=== PATIENT | female | born 1995 | race Hispanic/Latino ===

== ENCOUNTER 2019-11-20 08:46 | Outpatient (CLI) | payer OTHER, SELFPAY ==
--- NOTE | ~2019-11-20 | US_ITS ---
EXAMINATION: US OB <=14 wk fetus w TV DATE: 11/20/2019 10:07 INDICATION: Routine care TECHNIQUE: Real-time pelvic ultrasound utilizing both a transvaginal and transabdominal probe was pe rformed. The interpreting radiologist was not present for the study. COMPARISON: None. FINDINGS: The uterus measures 10.2 x 5.6 x 4.8 cm. There is an intrauterine gestational sac. A yolk sac and fe philomena pole are identified. The crown rump length measures 1.4 cm, which correlates with an estimated ge stational age of 7 weeks and 5 days. heart motion is identified measuring 149 beats per minute (bpm) by M-mode Doppler. The right ovary is not visualized. The left ovary measures 3.5 x 4.2 x 3.2 cm. 2.8 cm anechoic likely corpus luteum cyst in the left ovary. Normal vascular flow identified in the left ovary on color Dop pler. There is no free fluid in the pelvis. IMPRESSION: 1. Single living fetus with heart rate of 149 bpm. 2. Gestational age by ultrasound of 7 weeks 5 day(s) +/- 5 day(s) with ultrasound estimated date of delivery (TISH) of 07/03/2020. Reviewed, dictated and finalized at location B. IMPRESSION: 1. Single living fetus with heart rate of 149 bpm. 2. Gestational age by ultrasound of 7 weeks 5 day(s) +/- 5 day(s) with ultraso und estimated date of delivery (TISH) of 07/03/2020.
== END 2019-11-20 08:47 | disposition home or self-care (01) ==
PROVIDERS: Visit Provider Obstetrics & Gynecology
DX: Z3A.01 Less than 8 weeks gestation of pregnancy (principal); Z34.81 Encounter for supervision of other normal pregnancy, first trimester
CPT/HCPCS: 76801; 76817

== ENCOUNTER 2020-01-04 09:27 | Outpatient (CLI) | payer OTHER, SELFPAY ==
--- NOTE | ~2020-01-04 | US_ITS ---
EXAMINATION: US OB >= 14 weeks Fetus DATE: 01/04/2020 10:19 INDICATION: Encounter for supervision of normal , unspecified TECHNIQUE: Real-time ultrasound of the pelvis was performed. COMPARISON: None. FINDINGS: The placenta is anterior. heart rate is 145 beats per minute (bpm). cardiac activity and movement are noted. The amniotic fluid index is subjectively normal. The crown rump taras th measures 8.4 cm , which correlates with an estimated gestational age of 14 weeks and 2 day(s) (+/- ) 9 day(s). IMPRESSION: 1. Single living intrauterine . 2. Estimated gestational age of 14 weeks and 2 day(s) (+/-) 9 day(s) with an estimated delivery date of 07/02/2020. Reviewed, dictated and finalized at location A. IMPRESSION: 1. Single living intrauterine . 2. Estimated gestational age of 14 weeks and 2 day(s) (+/-) 9 day(s) with an es timated delivery date of 07/02/2020.
== END 2020-01-04 09:28 | disposition home or self-care (01) ==
PROVIDERS: Visit Provider Obstetrics & Gynecology
DX: Z34.92 Encounter for supervision of normal pregnancy, unspecified, second trimester (principal); Z3A.14 14 weeks gestation of pregnancy
CPT/HCPCS: 76805

== ENCOUNTER 2020-01-30 10:44 | Outpatient (CLI) | payer OTHER, SELFPAY ==
--- NOTE | ~2020-01-30 | US_ITS ---
US OB >= 14 weeks Fetus DATE: 01/30/2020 11:21 INDICATION: Normal second trimester TECHNIQUE: Real-time imaging and Doppler analysis COMPARISON: 01/04/2020 obstetrical ultrasound FINDINGS: Live vallejo intrauterine gestation, fetus in breech presentation, longitudinal lie. Feta l heart rate of 139 bpm. The placenta is anterior fundal. Biparietal diameter 4.03 cm; 18 weeks 2 days Head circumference 15.02 cm; 18 weeks 1 day Abdominal circumference 13.56 cm; 19 weeks Femur length 2.66 cm; 18 weeks 1 day Composite age by Burns formula is 18 weeks 3 days +/- 1 week 2 days; TISH: 06/29/2020, compared to by LMP Estimated weight by Hadlock formula is 244.4 +/- 30 6.7 g HC/AC measures 1.11, within normal range of 1.08-1.27 Femur length/head circumference: 17.74, within normal range of 15.93, 118.13 IMPRESSION: Breech presentation Normal interval growth since 01/04/2020 Reviewed, dictated and finalized at Location A. Reviewed, dictated and finalized at location A. [employer]
== END 2020-01-30 10:45 | disposition home or self-care (01) ==
PROVIDERS: Visit Provider Obstetrics & Gynecology
DX: Z34.92 Encounter for supervision of normal pregnancy, unspecified, second trimester (principal); Z3A.18 18 weeks gestation of pregnancy
CPT/HCPCS: 76805

== ENCOUNTER 2020-03-12 17:04 | Outpatient (CLI) | payer OTHER, SELFPAY ==
--- NOTE | ~2020-03-12 | US_ITS ---
EXAMINATION: US OB /maternal detail DATE: 03/12/2020 17:50 INDICATION: Morbid obesity. survey. TECHNIQUE: Multiple obstetric sonographic images performed. FINDINGS: Comparison to multiple prior studies sequentially, with oldest reviewed study dated 2019. There is a single living fetus in vertex presentation. The placenta is anterior without placenta pre via. Amniotic fluid volume is normal.. Examination limited due to patient body habitus. cardiac activity and movement is noted with a heart rate of 142 beats per minute. The following anatomy was identified as normal: 4 chamber heart 3 vessel cord cord insertion kidneys urinary bladder stomach spine diaphragm ventricles cisterna magna cerebellum The following biometric data were obtained: BPD: 58mm corresponds to gestational age 23 weeks 5 days. Head circumference: 216 mm corresponds to gestational age 23 weeks 5 days. Abdominal circumference: 200 mm corresponds to gestational age 24 weeks 5 days. Femur length: 42 mm corresponds to gestational age 23 weeks 4 days. Head circumference to abdominal circumference ratio: 1.08 (normal range for expected gestational age is 1.04-1.21). Estimated weight: 661 grams +/- 99 grams using Hadlock method. IMPRESSION: 1: Single living intrauterine with an estimated gestational age of 23weeks 6days by initial ultrasound measurements, with an EDC of 07/03/2020 in vertex presentation. 2. Normal survey. Reviewed, dictated and finalized at location A. ERY ASSISTANT IMPRESSION: 1: Single living intrauterine with an estimated gestational age of 23 weeks 6days by initial ultrasound measurements, with an EDC of 07/03/2020 in dru geovanni presentation. 2. Normal survey.
== END 2020-03-12 17:05 | disposition home or self-care (01) ==
PROVIDERS: Visit Provider Physician Assistant
DX: Z34.92 Encounter for supervision of normal pregnancy, unspecified, second trimester (principal); Z3A.23 23 weeks gestation of pregnancy
CPT/HCPCS: 76805

== ENCOUNTER 2020-03-26 17:44 | Observation (INO) | payer OTHER, SELFPAY ==
[2020-03-26 18:08] VITALS: BP 128/67; PULSE 96
[2020-03-26 18:30] VITALS: BMI 50.3
[2020-03-26] MEDS: DEXTROSE 5%/LACTATED RINGERS 1,000 ML 999 ML IV CONT (18:32)
[2020-03-26] MEDS: LOPERAMIDE HCL 2 MG CAPSULE 4 MG PO (18:48)
--- NOTE | 2020-03-26 19:40 | OBADM ---
This patient, Gabbi Sullivan, admitted to the OB room OB Post 117 for observation. Patient/family oriented to hospital policies and general routines including ID bracelet, bed and alarms, visiting hours, pain management, procedures, bathroom and other care routines, personal items, smoking policy, room service/diet, and visiting hours. Patient/Family are encouraged to report perceived risks to care and to ask questions if they do not understand what they are told or what they should do.
--- NOTE | 2020-04-01 19:30 | PM.OBTRLD ---
OB - Triage/Final Diagnosis Visit Information Date of evaluation: 03/26/20 Reason for evaluation: other (dehydration and diarrhea) Evaluation Baseline heart rate: 140 Variability: Average (6-10) monitor accelerations: Present monitor decelerations: None Cervical dilation (cm): 0 Cervical effacement (%): 0 station: -4 Final Diagnosis (1) Dehydration during : Code(s): O26.899 - Other specified related conditions, unspecified trimester; E86.0 - Dehydration Status: Acute (2) Diarrhea during : Code(s): O26.899 - Other specified related conditions, unspecified trimester; R19.7 - Diarrhea, unspecified Status: Acute
== END 2020-03-26 20:26 | disposition home or self-care (01) ==
PROVIDERS: Admitting Provider Obstetrics & Gynecology; Visit Provider Obstetrics & Gynecology
DX: O26.892 Other specified pregnancy related conditions, second trimester (principal); E86.0 Dehydration; R19.7 Diarrhea, unspecified; Z3A.25 25 weeks gestation of pregnancy
CPT/HCPCS: 96360; 96361; A9270; G0378; G0379; J7121

== ENCOUNTER 2020-04-09 13:11 | Outpatient (CLI) | payer OTHER, SELFPAY ==
--- NOTE | ~2020-04-09 | US_ITS ---
EXAMINATION: US OB follow up DATE: 04/09/2020 13:47 INDICATION: Encounter for supervision of normal during early third trimester of TECHNIQUE: Real-time ultrasound of the pelvis was performed. The interpreting radiologist was not pre sent for the study. COMPARISON: None. FINDINGS: There is a single living fetus in vertex presentation. The placenta is anterior. heart rate is 165 beats per minute (bpm). The amniotic fluid volume is subjectively normal. The following biometric data were obtained: BPD: 7.5 cm -> 29 weeks 6 days Head circumference: 26.8 cm -> 29 weeks 1 days Abdominal circumference: 25.7 cm -> 29 weeks 6 days Femur length: 5.2 cm -> 27 weeks 5 days These measurements are concordant. Head circumference to abdominal circumference ratio: 1.04 (normal range 0.99-1.21). Estimated weight: 1331 g (+/-) 200 g. or 2 lbs. 15 oz. (+/-) 7 oz. IMPRESSION: 1. Single living fetus in vertex presentation with heart rate of 165 bpm. 2. Estimated weight is 83rd percentile by Hadlock criteria when 07/03/2020 is used as the estima moira date of delivery (TISH). Please correlate with clinical information or earlier ultrasounds for mos t accurate TISH. Reviewed, dictated and finalized at location A. LANCE INTERPRETER/TRANSLATOR IMPRESSION: 1. Single living fetus in vertex presentation with heart rate of 165 bpm. 2. Estimated weight is 83rd percentile by Hadlock criteria when 07/03/2020 is used as the estimated date of delivery (TISH). Please correlate with clinica l information or earlier ultrasounds for most accurate TISH.
== END 2020-04-09 13:12 | disposition home or self-care (01) ==
PROVIDERS: PCP Obstetrics & Gynecology; Visit Provider Obstetrics & Gynecology
DX: Z34.90 Encounter for supervision of normal pregnancy, unspecified, unspecified trimester (principal); Z3A.00 Weeks of gestation of pregnancy not specified
CPT/HCPCS: 76816

== ENCOUNTER 2020-05-20 10:40 | Observation (INO) | payer OTHER, SELFPAY ==
--- NOTE | 2020-05-20 10:40 | OBADM ---
This patient, Gabbi Sullivan, admitted to the OB room OB Post 113 for observation. Patient/family oriented to hospital policies and general routines including ID bracelet, bed and alarms, visiting hours, pain management, procedures, bathroom and other care routines, personal items, smoking policy, room service/diet, and visiting hours. Patient/Family are encouraged to report perceived risks to care and to ask questions if they do not understand what they are told or what they should do.
[2020-05-20 11:00] VITALS: BP 125/69; PULSE 110; BMI 50.7
--- NOTE | 2020-05-23 20:54 | PM.OBTRLD ---
OB - Triage/Final Diagnosis Visit Information Comments/Additional reasons for admission: I have assessed the risk for this patient, Gabbi Sullivan, and determined that she would benefit from observation care. Final Diagnosis (1) False labor: Code(s): O47.9 - False labor, unspecified Status: Acute
== END 2020-05-20 12:20 | disposition home or self-care (01) ==
PROVIDERS: Admitting Provider Obstetrics & Gynecology; Visit Provider Obstetrics & Gynecology
DX: O47.03 False labor before 37 completed weeks of gestation, third trimester (principal); Z3A.33 33 weeks gestation of pregnancy
CPT/HCPCS: 84112; G0378; G0379

== ENCOUNTER 2020-05-28 20:23 | Emergency (ER) | payer OTHER, SELFPAY ==
[2020-05-28 20:28] VITALS: BP 138/71; PULSE 104; RESP 18; TEMP 36.3; O2SAT 100
--- NOTE | 2020-05-28 20:40 | ED.GENADULT ---
HPI - General Adult General Chief complaint: Unspecified Stated complaint: difficulty breathing through mouth Time Seen by Provider: 05/28/20 20:40 History of Present Illness HPI narrative: 24 yo female presents to the ED for SOB. While eating earlier she suddenly felt short of breath. She reports that she is able to breath in through her nose and out through her mouth. If she tries to breath in through her mouth then she cannot blow it out. She says that she felt like this when she had an allergic reaction to a medication in the past. She has not taken any new medications. No chest pain, nausea, vomiting. She is 32 weeks . Related Data Home Medications Medication Instructions Recorded Confirmed PNV,calcium [id number] acid tablet 05/28/20 [ Vitamin Plus Low Iron] aspirin 05/28/20 fluconazole 05/28/20 folic acid 05/28/20 Allergies Allergy/AdvReac Type Severity Reaction Status Date / Time No Known Allergies Allergy Verified 05/28/20 20:32 Review of Systems Review of Systems: All systems reviewed & are unremarkable except as noted in HPI and below Constitutional: Constitutional: Denies fever(s) and Denies weakness Eyes: Eyes: Denies change in vision ENT: Denies dizziness Cardiovascular: Cardiovascular: Reports chest pain and Denies rapid heart rate Respiratory: Respiratory: Reports dyspnea Gastrointestinal: Gastrointestinal: Reports heartburn, Reports nausea and Denies vomiting Neurologic: Denies dizziness, Denies numbness and Denies weakness Allergic/Immunologic: Allergic/Immunologic: Denies lip swelling, Denies throat swelling and Denies tongue swelling PMFSH Social History Social History Gender identity (if verbalized by the patient): Female Sexual Orientation (if Verbalized by the Patient): Straight or Heterosexual Exam Const: General: healthy appearing, no acute distress and alert Nutritional Appearance: obese morbidly obese Orientation/consciousness: patient oriented x3 HENMT: Head: normal to inspection Face and sinus: normal facial exam Teeth and gingiva: dentition normal Throat: posterior oropharynx normal and uvula midline Neck: Neck: normal visual inspection and no lymphadenopathy Chest: Chest palpation & inspection: no tenderness Resp: Effort & Inspection: normal respiratory effort Auscultation: clear to auscultation bilaterally, no rales, no rhonchi and no wheezes Other: No stridor Cardio: Jugular venous distension: no JVD Rate: regular rate Rhythm: regular rhythm Heart sounds: no murmurs GI: Inspection: non-distended GI Palp: Yes Soft to palpation and No Tenderness to palpation present (GI) Skin: General skin exam: normal color Neuro: General: patient oriented x3 and moves all extremities Speech: normal speech Extrem: General: no edema Psych: Appearance: well kempt Affect: normal affect Course Vital Signs Vital signs: Vital Signs Temperature 36.3 C L 05/28/20 20:28 Pulse Rate 104 H 05/28/20 20:28 Respiratory Rate 18 05/28/20 20:28 Blood Pressure 138/71 05/28/20 20:28 Pulse Oximetry 100 05/28/20 20:28 Temperature 36.4 C L 05/28/20 22:23 Pulse Rate 86 05/28/20 22:23 Respiratory Rate 18 05/28/20 22:23 Blood Pressure 138/84 05/28/20 22:23 Pulse Oximetry 100 05/28/20 22:23 Medical Decision Making MDM Narrative Medical decision making narrative: Oxygen saturation 100%. No physiologic mechanism for her symptoms. Differential Diagnosis Differential Diagnosis: Anxiety, allergy, food bolus, other Medical Records Medical records reviewed: Yes I reviewed the external patient's medical records. Vital Signs Vital Signs: Vital Signs Temperature 36.3 C L 05/28/20 20:28 Pulse Rate 104 H 05/28/20 20:28 Respiratory Rate 18 05/28/20 20:28 Blood Pressure 138/71 05/28/20 20:28 Pulse Oximetry 100 05/28/20 20:28 Temperature 36.4 C L
[2020-05-28 22:23] VITALS: BP 138/84; PULSE 86; RESP 18; TEMP 36.4; O2SAT 100
== END 2020-05-28 22:24 | disposition home or self-care (01) ==
PROVIDERS: Emergency Provider Emergency Medicine
DX: O26.893 Other specified pregnancy related conditions, third trimester (principal); R06.02 Shortness of breath; Z3A.32 32 weeks gestation of pregnancy
CPT/HCPCS: 99281

== ENCOUNTER 2020-06-02 13:12 | Outpatient (CLI) | payer OTHER, SELFPAY ==
--- NOTE | ~2020-06-02 | US_ITS ---
EXAMINATION: US OB follow up DATE: 06/02/2020 13:38 INDICATION: Assess growth during third trimester . TECHNIQUE: Real-time ultrasound of the pelvis was performed. The interpreting radiologist was not pre sent for the study. COMPARISON: None. FINDINGS: There is a single living fetus in vertex presentation. The placenta is anterior. heart rate is 157 beats per minute (bpm). The amniotic fluid volume is subjectively normal. The following biometric data were obtained: BPD: 9.2 cm -> 37 weeks 3 days Head circumference: 31.9 cm -> 36 weeks 0 days Abdominal circumference: 33.7 cm -> 37 weeks 4 days Femur length: 6.6 cm -> 34 weeks 0 days These measurements are concordant. Head circumference to abdominal circumference ratio: 0.95 (normal range 0.92-1.07). Estimated weight: 2967 g (+/-) 445 g. or 6 lbs. 9 oz. (+/-) 1 lb. 0 oz. IMPRESSION: 1. Single living fetus in vertex presentation with heart rate of 157 bpm. 2. Estimated weight is 73rd percentile by Hadlock criteria when 07/02/2020 is used as the estima moira date of delivery (TISH). Please correlate with clinical information or earlier ultrasounds for mos t accurate TISH. Reviewed, dictated and finalized at location B. IMPRESSION: 1. Single living fetus in vertex presentation with heart rate of 157 bpm. 2. Estimated weight is 73rd percentile by Hadlock criteria when 07/02/2020 is used as the estimated date of delivery (TISH). Please correlate with clinica l information or earlier ultrasounds for most accurate TISH.
== END 2020-06-02 13:13 | disposition home or self-care (01) ==
PROVIDERS: Visit Provider Obstetrics & Gynecology
DX: O35.8XX9 Maternal care for other (suspected) fetal abnormality and damage, other fetus (principal); Z3A.00 Weeks of gestation of pregnancy not specified
CPT/HCPCS: 76816

== ENCOUNTER 2020-06-08 15:05 | Observation (INO) | payer OTHER, SELFPAY ==
--- NOTE | 2020-06-08 15:05 | OBADM ---
This patient, Gabbi Sullivan, admitted to the OB room Labor/Delivery/Recovery 119 for observation. Patient/family oriented to hospital policies and general routines including ID bracelet, bed and alarms, visiting hours, pain management, procedures, bathroom and other care routines, personal items, smoking policy, room service/diet, and visiting hours. Patient/Family are encouraged to report perceived risks to care and to ask questions if they do not understand what they are told or what they should do.
[2020-06-08 16:15] VITALS: TEMP 36.8
[2020-06-08 17:24] VITALS: BMI 50.7
== END 2020-06-08 17:13 | disposition home or self-care (01) ==
PROVIDERS: Admitting Provider Obstetrics & Gynecology; Visit Provider Obstetrics & Gynecology
DX: O47.03 False labor before 37 completed weeks of gestation, third trimester (principal); Z3A.36 36 weeks gestation of pregnancy
CPT/HCPCS: G0378; G0379

== ENCOUNTER 2020-06-18 15:01 | Observation (INO) | payer OTHER, SELFPAY | END 2020-06-18 17:45 | disposition home or self-care (01) | PROVIDERS: Admitting Provider Obstetrics & Gynecology; Visit Provider Obstetrics & Gynecology | DX: O47.1 False labor at or after 37 completed weeks of gestation (principal); Z3A.37 37 weeks gestation of pregnancy | CPT/HCPCS: 84112; G0378; G0379 ==

== ENCOUNTER 2020-06-22 02:42 | Inpatient (IN) | payer OTHER, SELFPAY ==
[2020-06-22] VITALS (61 sets, daily range): BP systolic 91–129; BP diastolic 44–78; PULSE 54–132; RESP 11–23; TEMP 36.1–36.8; O2SAT 99–100; BMI 52.1
--- NOTE | 2020-06-22 03:41 | LDADM ---
This patient, Gabbi Sullivan, was admitted to Labor/Delivery/Recovery 120 on 06/22/20 at 02:42. Plans for labor, pain management and were discussed with patient. Patient/family oriented to hospital policies and general routines including ID bracelet, bed and alarms, visiting hours, pain management, procedures, bathroom and other care routines, personal items, smoking policy, room service/diet and guest tray routines, security routines, and visiting hours. Patient/Family are encouraged to report perceived risks to care and to ask questions if they do not understand what they are told or what they should do. See OBIX for further documentation.
[2020-06-22 03:59] LABS: Basophils Percent Auto 0.2 % (0.2-1.2); Eosinophils Absolute Auto 0.1 K/mm3 (0-0.3); Eosinophils Percent Auto 0.8 % (0-4.4); Hematocrit 27.8 % (37.0-47.0); Hemoglobin 8.1 g/dL (12.0-15.0); Immature Granulocyte Absolute 0.06 K/mm3 (0.00-0.031); Immature Granulocyte Percent A 0.5 % (0-0.5); Lymphocytes Absolute Auto 2.14 K/mm3 (0.9-3.2); Lymphocytes Percent Auto 19.1 % (18.3-44.2); Mean Corpuscular HGB Conc 29.1 g/dl (32-36); Mean Corpuscular Hemoglobin 20.3 pg (26-34); Mean Corpuscular Volume 69.7 fl (80-100); Mean Platelet Volume 10.9 fl (7.4-10.4); Monocytes Absolute Auto 0.7 K/mm3 (0.1-0.6); Monocytes Percent Auto 5.8 % (2.6-8.5); Neutrophils Absolute Auto 8.2 K/mm3 (1.3-6.7); Neutrophils Percent Auto 73.6 % (45.5-73.1); Nucleated Red Blood Cells Perc 0.2 % (0.0-0.2); Platelet Count Result 296 k/mm3 (150-375); Red Blood Count 3.99 M/mm3 (4.2-5.4); Red Cell Distribution Width 18.1 % (11.5-14.5); White Blood Count 11.2 K/mm3 (4.5-10.0)
[2020-06-22] MEDS: LACTATED RINGERS 1,000 ML 125 ML IV CONT ×2 (05:00→06:26)
--- NOTE | 2020-06-22 05:32 | WPDHPUPDATE1 ---
History and Physical Update Update Date/Time: 06/22/20 05:32 History and Physical has been reviewed, including an updated exam of the patient. There are NO changes in the patient's condition. Risks, benefits, and alternatives have been discussed and questions answered. Patient agrees to proceed with procedure. 24 yo HF at 38w3d with a history of previous section, MTHFR, pre-eclampsia and GDM, GBS carrier, abnormal progesterone, obesity, MDD candidiasis, UTI klebsiella aerogenes, anemia, presents to Labor and delivery at [facility] with complaints of spontaneous rupture membranes at 2:00 a.m. on 06/22/2020 ROM test positive contractions irregular cervix still 3 cm dilated desires repeat section 3d. The patient is scheduled for a repeat on 06/27/2020 at [facility] I explained her condition procedure and risks involved including but not limited to bleeding infection injury to bladder bowel baby pelvic vessels DVT pneumonia wound infections endometrioid is UTI and the risk of anesthesia she understands all this and accepts and agrees to proceed.
--- NOTE | 2020-06-22 05:33 | WPDOBADMIT ---
Obstetrics - Admit Note Admission Note: record reviewed. No pertinent additions to the history and/or any subsequent changes in the physical findings that are not consistent with the expected course of the were found. Additions to the history and/or subsequent changes in the physical findings follow. None 24 yo HF at 38w3d with a history of previous section, MTHFR, pre-eclampsia and GDM, GBS carrier, abnormal progesterone, obesity, MDD candidiasis, UTI klebsiella aerogenes, anemia, presents to Labor and delivery at [facility] with complaints of spontaneous rupture membranes at 2:00 a.m. on 06/22/2020 ROM test positive contractions irregular cervix still 3 cm dilated desires repeat section 3d. The patient is scheduled for a repeat on 06/27/2020 at [facility] I explained her condition procedure and risks involved including but not limited to bleeding infection injury to bladder bowel baby pelvic vessels DVT pneumonia wound infections endometrioid is UTI and the risk of anesthesia she understands all this and accepts and agrees to proceed. .
--- NOTE | 2020-06-22 05:55 | PM.IMHP ---
H&P: HPI History of Present Illness Date/Time: 06/22/20 05:26 24 yo HF at 38w3d with a history of previous section, MTHFR, pre-eclampsia and GDM, GBS carrier, abnormal progesterone, obesity, MDD candidiasis, UTI klebsiella aerogenes, anemia, presents to Labor and delivery at [facility] with complaints of spontaneous rupture membranes at 2:00 a.m. on 06/22/2020 ROM test positive contractions irregular cervix still 3 cm dilated desires repeat section 3d. The patient is scheduled for a repeat on 06/27/2020 at [facility] I explained her condition procedure and risks involved including but not limited to bleeding infection injury to bladder bowel baby pelvic vessels DVT pneumonia wound infections endometrioid is UTI and the risk of anesthesia she understands all this and accepts and agrees to proceed. Chief Complaint: Term spontaneous rupture membranes spontaneous labor previous delivery desires repeat Review of Systems Review of Systems: All systems reviewed & are unremarkable except as noted in HPI and below Constitutional: Constitutional: Reports no additional constitutional complaints Eyes: Eyes: Reports no additional eye complaints ENT: Reports system reviewed and no additional complaints, except as documented Cardiovascular: Cardiovascular: Reports no additional cardiovascular complaints Respiratory: Respiratory: Reports no additional respiratory complaints Gastrointestinal: Gastrointestinal: Reports no additional gastrointestinal complaints Genitourinary: Genitourinary: Reports no additional female genitourinary complaints Musculoskeletal: Musculoskeletal: Reports no additional musculoskeletal complaints Integumentary/Breasts: Skin/Breast: Reports system reviewed and no additional complaints, except as docu Neurologic: Reports system reviewed and no additional complaints, except as documented Psychiatric: Psychiatric: Reports no additional psychiatric complaints Endocrine: Endocrine: Reports no additional endocrine complaints Hematologic/Lymphatic: Hematologic/Lymphatic: Reports no additional hematologic/lymphatic complaints Allergic/Immunologic: Allergic/Immunologic: Reports no additional allergic/immunologic complaints [facility] Past Medical History Medical History (Updated 06/22/20 @ 05:52 by Ceferino Gonzalez MD) Abnormal glucose tolerance test (GTT) Anemia affecting Bacterial vaginosis GBS (group B Streptococcus carrier), +RV culture, currently History of depression History of UTI Homozygous MTHFR mutation [id number] LGA (large for gestational age) fetus MDD (major depressive disorder) Migraine headache Obesity Sinusitis Sleep disorder Subchorionic hematoma Term Vaginal delivery 08-15-2015, 40 wks Male, 7lbs 2oz, normal spontaneous vertex Vaginal delivery born in [place] natural childbirth complicated by preeclampsia and gestational diabetes and depression Surgical History Surgical History (Updated 06/22/20 @ 05:45 by Ceferino Gonzalez MD) Delivery by section Previous section complicating 05-07-2017, 38.1 wk female Laurence Bryant , 8lbs 4oz, Primary at [facility] for CPD under spinal anesthesia Family History Family History Grandparent Diabetes mellitus Grandparent Hypertension Social History Social History (Updated 06/22/20 @ 05:48 by Ceferino Gonzalez MD) Smoking status: Never smoker Alcohol intake: never Substance use: never Substance use type: does not use Living arrangements: with family Occupation/Education: unemployed Gender identity (if verbalized by the patient): Female Sexual Orientation (if Verbalized by the Patient): Straight or Heterosexual Spiritual care concerns: No Agree to blood products: Yes Meds Home Medicatio
--- NOTE | 2020-06-22 07:03 | WPDANESEPP ---
Anes - Eval Pre Procedure Procedure: Operation Date: 06/27/20 10:30 Proposed Procedures p Repeat Low Transverse Section - Ceferino Gonzalez MD Operation Date: 06/27/20 12:00 Proposed Procedures p Repeat Section - Ceferino Gonzalez MD Date/Time: 06/22/20 07:03 Preop Diagnosis: Previous C section Pre Op Diagnosis: leaking Patient Data Age: 24 Gender: F Height: 5 ft 7 in Weight: 151 kg Last Vital Signs Pulse 132 H 06/22/20 03:31 BP 121/61 06/22/20 03:31 Allergies Allergy/AdvReac Type Severity Reaction Status Date / Time [id number] Antimigraine Allergy Anaphylaxis Verified 06/02/20 14:49 Agents Home Medications Medication Instructions Recorded Confirmed Type Vitamin Plus Low Iron 1 tablet PO DAILY 05/28/20 06/18/20 History aspirin 81 mg PO DAILY 05/28/20 06/18/20 History folic acid 1 mg PO DAILY 05/28/20 06/18/20 History escitalopram oxalate 10 mg PO DAILY 06/02/20 06/18/20 History ferrous sulfate [Iron (ferrous 325 mg PO DAILY 06/02/20 06/18/20 History sulfate)] progesterone micronized 200 mg PO BID 06/02/20 06/18/20 History Laboratory Tests 06/22/20 06/22/20 06/22/20 03:43 03:43 03:43 WBC 11.2 K/mm3 H K/mm3 (4.5-10.0) RBC 3.99 M/mm3 L M/mm3 (4.2-5.4) Hgb 8.1 g/dL L g/dL (12.0-15.0) Hct 27.8 % L % (37.0-47.0) MCV 69.7 fl L fl (80-100) MCH 20.3 pg L pg (26-34) MCHC 29.1 g/dl L g/dl (32-36) RDW 18.1 % H % (11.5-14.5) Plt Count 296 k/mm3 k/mm3 (150-375) MPV 10.9 fl H fl (7.4-10.4) Immature Gran % (Auto) 0.5 % % (0-0.5) Neut % (Auto) 73.6 % H % (45.5-73.1) Lymph % (Auto) 19.1 % % (18.3-44.2) [place] % (Auto) 5.8 % % (2.6-8.5) Eos % (Auto) 0.8 % % (0-4.4) Baso % (Auto) 0.2 % % (0.2-1.2) Lymph # (Auto) 2.14 K/mm3 K/mm3 (0.9-3.2) [place] # (Auto) 0.7 K/mm3 H K/mm3 (0.1-0.6) Eos # (Auto) 0.1 K/mm3 K/mm3 (0-0.3) Baso # (Auto) 0.0 K/mm3 K/mm3 (0.0-0.1) Abs Immat Gran (auto) 0.06 K/mm3 H K/mm3 (0.00-0.031) Absolute Neuts (auto) 8.2 K/mm3 H K/mm3 (1.3-6.7) Absolute Nucleated RBC 0.0 K/mm3 K/mm3 (0.0-0.012) Nucleated RBC % 0.2 % % (0.0-0.2) RPR Pending Blood Type O Positive Antibody Screen Negative Patient hx anesthesia problems: none Family hx anesthesia problems: none [facility] Past Medical History Medical History Abnormal glucose tolerance test (GTT) Anemia affecting Bacterial vaginosis GBS (group B Streptococcus carrier), +RV culture, currently History of depression History of UTI Homozygous MTHFR mutation C677T LGA (large for gestational age) fetus MDD (major depressive disorder) Migraine headache Obesity Sinusitis Sleep disorder Subchorionic hematoma Term Vaginal delivery 08-15-2015, 40 wks Male, 7lbs 2oz, normal spontaneous vertex Vaginal delivery born in [place] natural childbirth complicated by preeclampsia and gestational diabetes and depression Surgical History Surgical History Delivery by section Previous section complicating 05-07-2017, 38.1 wk female Laurence Bryant , 8lbs 4oz, Primary at [facility] for CPD under spinal anesthesia Family History Family History Grandparent Diabetes mellitus Grandparent Hypertension Social History Social History Smoking status: Never smoker Alcohol intake: never Substance use: never Substance use type: does not use Living arrangements: with family Occupation/Education:
--- NOTE | 2020-06-22 07:48 | PM.PROC ---
Procedure Note - Detailed Date of procedure: 06/22/20 Pre-op diagnosis: leaking Term Spontaneous onset of labor Spontaneous labor Previous desires repeat section MTHFR GBS LGA Obesity Abnormal glucose tolerance test MD Lemus Post-op diagnosis: same (Delivered viable male infant) Procedure performed: Repeat low-transverse section with delivery of viable male infant and placenta Description of procedure: Patient had informed consent was then taken to the operating room where she was placed in the sitting position for spinal anesthesia which was placed without difficulty. Patient was then placed in the supine position with a Mcnulty catheter inserted and then the abdomen was then prepped and draped with a tracks abdominal support and the usual sterile dressings. A time-out was then performed and testing for adequate anesthesia was confirmed. An elliptical incision was then made around the old scar and the old scar was then excised using electrocautery. Fascia was entered transversely with electrocautery and then undermined superior and inferior hemostasis with electrocautery. Peritoneum was then grasped and entered with electrocautery digitally dissected the vesicouterine peritoneal reflection was then incised transversely. A transverse incision was made to the uterus clear fluid was obtained the uterine incision was extended bilaterally digitally with the occiput transverse position noted. The vertex was then delivered via the abdominal incision without difficulty and the baby was placed on maternal abdomen where the cord was then clamped and cut and stimulation of the baby revealed spontaneous respirations and cry and the baby was handed to the nursery nurse in attendance with Apgars given 9 And 9 time of delivery 8:13 a.m.. Baby weighed 8 lb 5 oz taken to the nursery in stable condition. Baby had normal transition cord gases obtained cord blood obtained placenta was then delivered intact with a three-vessel cord and the uterus was externalized blood clots removed from the intrauterine cavity as well as membranes and 10 units of Pitocin was given into the myometrium as well as intravenously. The uterine incision was then repaired in 2 layers with 0 Vicryl in a running and locking fashion the 2nd being an imbricating stitch. Hemostasis excellent blood clots removed from the cul-de-sac both lateral margins sponge needle instrument counts were correct. The peritoneum and fascia was then closed with 0 Vicryl in a running fashion. The fascia was then closed with 2. Quill the S RS system bilaterally. The Hiral's fascia was reapproximated 3 0 plain in a running fashion. The skin was closed with absorbable brigida INSORB staple device with excellent approximation Dermaflex was placed to the skin. Mepilex dressing was placed over the incision. Patient was taken to the recovery room in stable condition. Counts correct complications none specimens pathology placenta cord blood gases cord blood VTE prevention SCD antibiotic prophylaxis 3 g Ancef Mcnulty catheter 300 cc urine IV fluids 2000 Mom and baby in stable condition Implants: None Anesthesia: spinal Surgeon: Ceferino Gonzalez MD Computer Information Systems Professor: Amparo surgical corsetier x2 Estimated blood loss (mL): 405 IV fluids (mL): 2,000 Urine output (mL): 300 Drains: No Packing: No Pathology: yes (Placenta, cord gases, cord blood) Complications: None Condition: stable Disposition: floor Findings: Viable male infant named Carlos scores 9 and 9 weight 8 lb 5 oz length 21 in Born at 8:13 a.m. normal exam taken to the nursery in stable condition Placenta intact three-vessel cord sent to pathology Uterus tubes ovaries normal Hemostasis excellent Absorbable skin brigida Bottle feeding No circumcision desired Electrical Engineering Draftsperson SI HF depression prevention Lexapro control and ovarii
--- NOTE | 2020-06-22 07:49 | PM.OBPRVD ---
OB - Delivery Note Procedure Delivery date: 06/22/20 Procedure: Procedures Operation Date: 06/22/20 07:30 Repeat low-transverse section with delivery of viable male infant and placenta Operation Date: 06/27/20 10:30 <No data on this case meets the specified criteria> Operation Date: 06/27/20 12:00 <No data on this case meets the specified criteria> events: Previous Intrapartal events: None Induction method: none Delivery monitor: external FHT and external uterine Route of delivery: (Repeat low-transverse) Episiotomy description: None Laceration Description: None Specimen: Yes Quantitative Blood Loss (ml): 405 Anesthesia type: Spinal Disposition: floor [place] Baby Date of : 06/22/20 Time of : 08:13 Weeks of gestation at delivery: 38 Infant gender: Male (Carlos) Weight (pounds): 8 Weight (ounces): 5 presentation: vertex position: Left Occiput Transverse Placenta delivery description: Manual Removal and Normal Configuration cord vessel description: 3 Vessels score one minute: 8 score five minutes: 9 Narrative: See detailed op note
[2020-06-22] MEDS: OXYTOCIN 10 UNITS/ML VIAL (08:15)
--- NOTE | 2020-06-22 08:53 | WPDANESEFPP ---
Anes - Eval Final PreProcedure Day of Procedure 06/22/20 08:53 Patient weight: super morbidly obese Heart: regular rate and rhythm Lungs: clear to auscultation and normal air movement Airway: Mallampati scale class II Neurological: alert and oriented Last oral intake: >/= 8 hours ASA classification: III Emergent: no Anesthetic plan: proceed Anesthesia type and monitoring: regional spinal Informed Consent: The patient's anesthetic plan and its attendant risks and benefits were discussed with the patient/family/POA. Questions were solicited and answers provided to the satisfaction of the patient/family/POA.
--- NOTE | 2020-06-22 08:56 | PM.OBDSVD ---
DS: Admitting Diagnosis Admitting Diagnosis Admitting Diagnosis: Pre-op diagnosis: leaking Term Spontaneous onset of labor Spontaneous labor Previous desires repeat section MTHFR GBS LGA Obesity Abnormal glucose tolerance test MD Lemus DS: Discharge Diagnosis Discharge Diagnosis (1) Term delivered: Code(s): O80 - Encounter for full-term uncomplicated delivery Status: Acute (2) Status post repeat low transverse section: Code(s): Z98.891 - History of uterine scar from previous surgery Status: Acute (3) Spontaneous onset of labor: Status: Acute (4) Spontaneous rupture of membranes: Status: Acute (5) LGA (large for gestational age) fetus: Status: Acute (6) GBS (group B Streptococcus carrier), +RV culture, currently : Code(s): O99.820 - Streptococcus B carrier state complicating Status: Acute (7) Obesity: Code(s): E66.9 - Obesity, unspecified Status: Acute (8) Homozygous MTHFR mutation C677T: Code(s): Z15.89 - Genetic susceptibility to other disease Status: Acute OB - DS: Summary Hospital Course Time spent discussing smoking cessation with patient: 3 to 10 minutes OB Procedures : Ultrasound OB Procedures Intrapartum: (Repeat) low cervical, transverse OB Procedures: : None Peripartum Data Delivery Method: Section (Repeat low-transverse) Laceration Description: None Episiotomy description: None Procedures: Procedures Operation Date: 06/22/20 07:30 Repeat low-transverse section with delivery of viable male infant and placenta Operation Date: 06/27/20 10:30 <No data on this case meets the specified criteria> Operation Date: 06/27/20 12:00 <No data on this case meets the specified criteria> complications: none 1: Gender: Male (Carlos) Disposition of : home (No circumcision desired) Status at Discharge Functional status at discharge: independent ambulation Overall status at discharge: patient is back to baseline Time Spent with Patient Time attestation: Total time spent providing and/or coordinating discharge services: Time spent: Less than 30 minutes Exam Const: General: cooperative, healthy appearing, comfortable, no acute distress, well developed, alert, awake and Physically active HENMT: Head: normal to inspection Eyes: General: appearance normal, both eyes and all related structures Neck: Neck: normal visual inspection Chest: Chest palpation & inspection: normal inspection of the chest Resp: Effort & Inspection: normal respiratory effort Cardio: Rate: regular rate Rhythm: regular rhythm GI: Inspection: normal to inspection and incision (Dressing dry and intact) GI Palp: Yes Soft to palpation and Yes Other GI palpation findings present (Uterus nontender) Percussion: Yes normal to percussion Auscultation: normal bowel sounds : External Female Exam: normal external appearance Back/Spine/Pelvis: Back: no CVA tenderness Skin: General skin exam: normal color Neuro: General: patient oriented x3, gait normal, tone normal, moves all extremities, Normal light touch and pain sensation, no meningeal signs and no focal motor deficits Extrem: General: normal to inspection, full ROM and no calf tenderness Psych: Appearance: grossly normal Mental Status: mental status grossly normal Speech and movement: Normal speech and movement present Affect: normal affect Attitude: cooperative Thought content: Yes Normal thought content present Insight: Good insight present (Psych) Judgement: Good judgement present (Psych) DS: Data Data Completed and Pending Labs on day of discharge: Labs from last 24 hours 06/22/20 06/22/20 06/22/20 03:43 03:43 03:43 WBC 11.2 H RBC 3.99 L Hgb 8.1 L Hct 27.8 L MCV 69.7 L MCH 20.3 L MCHC 29.1 L RDW 1
[2020-06-22] MEDS: ONDANSETRON INJ 4 MG/2 ML VIAL IV PUSH (09:39)
[2020-06-22] MEDS: OXYTOCIN 30 UNITS/NS 500 ML 30 UNITS/500 ML BAG 125 UNITS IV CONT (09:39)
[2020-06-22] MEDS: KETOROLAC 30 MG/ML VIAL (*BKC) IV PUSH ×3 (11:30→23:35)
--- NOTE | 2020-06-22 12:15 | PC.NURSE ---
Patient transferred to post room #284 via stretcher. Support person present. Oriented to unit, room, information board, rooming in, admission packet and security measures. Patient verbalizes understanding.
[2020-06-22] MEDS: DEXTROSE 5%/0.45% SOD CHL 1,000 ML 125 ML IV CONT (14:13)
[2020-06-22] MEDS: KCL 20 MEQ/D5/0.45% SOD CHL 1,000 ML 125 ML IV CONT (22:21)
[2020-06-22] MEDS: HYDROcodone/acetaminophen (*CRX) 5-325 MG TABLET 1 TAB PO (22:29)
[2020-06-23 04:00] VITALS: BP 118/60; PULSE 87; RESP 16; TEMP 36.5; O2SAT 100
[2020-06-23] MEDS: IBUPROFEN 600 MG TABLET PO ×3 (05:30→19:57)
[2020-06-23 05:53] LABS: Basophils Percent Auto 0.2 % (0.2-1.2); Eosinophils Absolute Auto 0.1 K/mm3 (0-0.3); Eosinophils Percent Auto 0.8 % (0-4.4); Hematocrit 22.1 % (37.0-47.0); Immature Granulocyte Absolute 0.05 K/mm3 (0.00-0.031); Immature Granulocyte Percent A 0.5 % (0-0.5); Lymphocytes Absolute Auto 1.79 K/mm3 (0.9-3.2); Lymphocytes Percent Auto 18.6 % (18.3-44.2); Mean Corpuscular Hemoglobin 20.3 pg (26-34); Mean Corpuscular Volume 69.9 fl (80-100); Mean Platelet Volume 11.1 fl (7.4-10.4); Monocytes Absolute Auto 0.6 K/mm3 (0.1-0.6); Monocytes Percent Auto 6.3 % (2.6-8.5); Neutrophils Absolute Auto 7.1 K/mm3 (1.3-6.7); Neutrophils Percent Auto 73.6 % (45.5-73.1); Platelet Count Result 219 k/mm3 (150-375); Red Blood Count 3.16 M/mm3 (4.2-5.4); Red Cell Distribution Width 17.6 % (11.5-14.5); White Blood Count 9.6 K/mm3 (4.5-10.0)
[2020-06-23 06:17] LABS: Hemoglobin 6.4 g/dL (12.0-15.0)
[2020-06-23 06:18] LABS: Hypochromasia 1+ (NORMAL); Platelet Estimate Adequate (Adequate); Stomatocytes 1+ (NORMAL)
[2020-06-23 06:19] LABS: Target Cells 1+ (NORMAL)
[2020-06-23 07:18] LABS: Rapid Plasma Reagin Non-Reactive (NonReactive)
[2020-06-23 07:30] VITALS: BP 121/45; PULSE 78; RESP 18; TEMP 37.2; O2SAT 100
[2020-06-23] MEDS: SIMETHICONE 80 MG TAB.CHEW PO ×2 (08:45→14:05)
[2020-06-23] MEDS: HYDROcodone/acetaminophen (*CRX) 10-325 MG TABLET 1 TAB PO ×2 (08:46→17:20)
[2020-06-23] MEDS: MULTIVIT/MIN/PREN/FOL AC/IRON TABLET 1 TAB PO (08:46)
[2020-06-23] MEDS: POLYSACCHARIDE IRON COMPLEX 150 MG CAPSULE PO ×2 (08:46→17:19)
[2020-06-23] MEDS: DOCUSATE SODIUM 100 MG CAPSULE PO ×2 (08:46→17:20)
[2020-06-23] MEDS: ASPIRIN 81 MG ENTERIC TABLET PO (08:47)
[2020-06-23] MEDS: ESCITALOPRAM OXALATE 10 MG TABLET PO (08:47)
[2020-06-23] MEDS: FOLIC ACID 1 MG TABLET PO (08:47)
[2020-06-23 09:00] VITALS: PULSE 78; RESP 18; O2SAT 100
--- NOTE | 2020-06-23 11:28 | WPDANLDNPN2 ---
Anes-Prog Note L&D-Neuraxial Date/Time: 06/23/20 11:28 Neuraxial medications: intrathecal PF morphine Opiod-related complaints: none Patient feedback: Patient satisfied with post-operative pain management.
--- NOTE | 2020-06-23 11:28 | WPDANLDPN2 ---
Anes-Prog Note L&D Date/Time: 06/23/20 11:28 Comfortable throughout: section Neuraxial method: spinal Epidural/Spinal procedure site: clean & non-tender Neuro status: Neuro function grossly intact. Cardiovascular status: normal Respiratory status: normal Airway patency: baseline Mental status: baseline Post-Op hydration status: normal Vital Signs: Last Vital Signs Temp 37.2 C 06/23/20 07:30 Pulse 78 06/23/20 09:00 Resp 18 06/23/20 09:00 BP 121/45 L 06/23/20 07:30 Pulse Ox 100 06/23/20 09:00 Pain score (VAS): 0 I/O: Intake & Output 06/22/20 06/23/20 06/23/20 23:59 07:59 15:59 Intake Total 2000 1060 Output Total 925 1450 Balance 1075 -390 Post-procedural complaints: none Patient feedback: Patient satisfied with anesthetic care.
[2020-06-23] MEDS: HYDROcodone/acetaminophen (*CRX) 5-325 MG TABLET 1 TAB PO (14:05)
[2020-06-23 19:50] VITALS: BP 108/54; PULSE 95; RESP 16; TEMP 36.1; O2SAT 100
[2020-06-24] MEDS: HYDROcodone/acetaminophen (*CRX) 5-325 MG TABLET 1 TAB PO ×2 (00:17→04:31)
[2020-06-24] MEDS: IBUPROFEN 600 MG TABLET PO ×2 (04:31→10:06)
--- NOTE | 2020-06-24 06:44 | P.PNOB_ITS ---
OB - PN: Subj Subjective Date/time seen: 06/23/20 06:44 Patient comments: no complaints, pain well controlled, tolerating diet and flatus present [place] baby status: doing well and bottle feeding well [place] feeding status: exclusively bottle feeding OB - PN: Obj Data Labs CBC & Chem 7: 06/23/20 05:29 Labs: Laboratory Results - last 24 hr 06/22/20 03:43 RPR Non-reactive OB - PN A/P Assessment and Plan (1) Term delivered: Code(s): O80 - Encounter for full-term uncomplicated delivery Status: Acute (2) Status post repeat low transverse section: Code(s): Z98.891 - History of uterine scar from previous surgery Status: Acute (3) Anemia affecting : Code(s): O99.019 - Anemia complicating , unspecified trimester Status: Acute Plan day: 1 Plan: routine care, discharge home and follow up 6 weeks Time Spent With Patient Time: Total time spent is greater than 50% in coordination of care (as documented) at patient's floor/unit and/or counseling patient: Time with patient: less than 15 minutes Review of Systems Review of Systems: All systems reviewed & are unremarkable except as noted in HPI and below Exam Const: General: cooperative, healthy appearing, comfortable, well developed, alert, awake and Physically active Nutritional Appearance: average body habitus and obese Limitations: no limitations HENMT: Head: normal to inspection Eyes: General: appearance normal, both eyes and all related structures Neck: Neck: normal visual inspection and full ROM Chest: Chest palpation & inspection: normal inspection of the chest Breast/axilla inspection: normal inspection of the breasts Resp: Effort & Inspection: normal respiratory effort Auscultation: clear to auscultation bilaterally Cardio: Rate: regular rate Rhythm: regular rhythm GI: Inspection: incision (DDI) GI Palp: Yes Soft to palpation Percussion: Yes normal to percussion Auscultation: normal bowel sounds : External Female Exam: normal external appearance Urinary Catheter: Urinary Catheter: patent and draining and urine clear Back/Spine/Pelvis: Back: no CVA tenderness Skin: General skin exam: normal color Neuro: General: patient oriented x3, gait normal, tone normal, moves all extremities, Normal light touch and pain sensation, no meningeal signs and no f ocal motor deficits Extrem: General: normal to inspection, full ROM and no calf tenderness Psych: Appearance: grossly normal Mental Status: mental status grossly nor mal Speech and movement: Normal speech and movement present Affect: normal affect Attitude: cooperative Thought process: Normal thought process present Thought content: Yes Normal thought content present Insight: Good insight present (Psych) Judgement: Good judgement present (Psych)
[2020-06-24 07:00] VITALS: BP 107/58; PULSE 95; RESP 16; RESP 18; TEMP 36.3; O2SAT 100; O2SAT 97
[2020-06-24] MEDS: SIMETHICONE 80 MG TAB.CHEW PO (07:15)
[2020-06-24] MEDS: POLYSACCHARIDE IRON COMPLEX 150 MG CAPSULE PO (07:15)
[2020-06-24] MEDS: MULTIVIT/MIN/PREN/FOL AC/IRON TABLET 1 TAB PO (07:15)
[2020-06-24] MEDS: DOCUSATE SODIUM 100 MG CAPSULE PO (07:16)
[2020-06-24] MEDS: HYDROcodone/acetaminophen (*CRX) 10-325 MG TABLET 1 TAB PO (10:06)
[2020-06-24] MEDS: ASPIRIN 81 MG ENTERIC TABLET PO (10:06)
[2020-06-24] MEDS: ESCITALOPRAM OXALATE 10 MG TABLET PO (10:06)
[2020-06-24] MEDS: FOLIC ACID 1 MG TABLET PO (10:07)
[2020-06-25 08:34] VITALS: BP 115/63; PULSE 90; RESP 20; TEMP 36.9; O2SAT 100
== END 2020-06-24 13:25 | disposition home or self-care (01) | DRG 540 ==
LOC: ANHLDR 09:02 → ANHOB2 11:21
PROVIDERS: Admitting Provider Obstetrics & Gynecology; Visit Provider Obstetrics & Gynecology
PROC: 10D00Z1 Extraction of Products of Conception, Low, Open Approach (ICD-10-PCS; CPT 59514; principal; 2020-06-22 07:30)
DX: O34.211 Maternal care for low transverse scar from previous cesarean delivery (principal); Z37.0 Single live birth; Z3A.38 38 weeks gestation of pregnancy; O99.284 Endocrine, nutritional and metabolic diseases complicating childbirth; E72.12 Methylenetetrahydrofolate reductase deficiency; O24.429 Gestational diabetes mellitus in childbirth, unspecified control; O99.214 Obesity complicating childbirth; E66.01 Morbid (severe) obesity due to excess calories; O99.02 Anemia complicating childbirth; D64.9 Anemia, unspecified; O99.344 Other mental disorders complicating childbirth; F32.9 Major depressive disorder, single episode, unspecified; O36.63X0 Maternal care for excessive fetal growth, third trimester, not applicable or unspecified
CPT/HCPCS: 36415; 85025; 86592; 86850; 86900; 86901; 88307; A9270; J0131; J1100; J1885; J2274; J2405; J2590; J3480; J7120

== ENCOUNTER 2022-01-27 21:41 | Emergency (ER) | payer OTHER, SELFPAY ==
[2022-01-27 22:20] VITALS: BP 141/59; PULSE 94; RESP 14; TEMP 37.1; O2SAT 98
--- NOTE | 2022-01-28 00:18 | ED.GENADULT ---
HPI - General Adult General Chief complaint: Headache Stated complaint: headache Time Seen by Provider: 01/27/22 23:56 History of Present Illness HPI narrative: 26-year-old female with history of daily migraines and type 2 diabetes presenting the emergency department for evaluation of headache. Patient states while she does have daily headaches that about 9 PM she developed a headache that was more intense than her typical's. Patient's atypical headache is usually more posterior and that her headache today is her entire head. Patient does have some cough and body aches as well. Patient denies any falls or injuries. Patient reports prior history of migraines Related Data Home Medications Medication Instructions Recorded Confirmed aspirin 81 mg tablet,delayed 81 mg PO DAILY 05/28/20 06/18/20 release folic acid 1 mg tablet 1 mg PO DAILY 05/28/20 06/18/20 vitamin with calcium 1 tablet PO DAILY 05/28/20 06/18/20 no.72-iron 27 mg-folic acid 1 mg tablet ( Vitamins Plus Low Iron) escitalopram oxalate 10 mg tablet 10 mg PO DAILY 06/02/20 06/18/20 ferrous sulfate 325 mg (65 mg 325 mg PO DAILY 06/02/20 06/18/20 iron) tablet (Iron (ferrous sulfate)) Allergies Allergy/AdvReac Type Severity Reaction Status Date / Time [id number] Antimigraine Allergy Anaphylaxis Verified 01/28/22 00:46 Agents Review of Systems Review of Systems: CONSTITUTIONAL: Denies fever, chills, or sweats. EYES: Denies visual changes, redness, or discharge. ENT: Denies rhinorrhea, congestion, sore throat, or otalgia. CARDIOVASCULAR: Denies chest pain, palpitations, or edema. RESPIRATORY: Denies cough or dyspnea. GASTROINTESTINAL: Denies abdominal pain, nausea, vomiting, or diarrhea. GENITOURINARY: Denies dysuria or hematuria. SKIN: Denies rash or itching. MUSCULOSKELETAL: Denies back pain, joint pain, or myalgia. NEUROLOGIC: See HPI [facility] Past Medical History Medical History Abnormal glucose tolerance test (GTT) Anemia affecting Bacterial vaginosis GBS (group B Streptococcus carrier), +RV culture, currently History of depression History of UTI Homozygous MTHFR mutation C677T LGA (large for gestational age) fetus MDD (major depressive disorder) Migraine headache Obesity Sinusitis Sleep disorder Subchorionic hematoma Term Vaginal delivery 08-15-2015, 40 wks Male, 7lbs 2oz, normal spontaneous vertex Vaginal delivery born in [place] natural childbirth complicated by preeclampsia and gestational diabetes and depression Surgical History Surgical History Delivery by section Previous section complicating 05-07-2017, 38.1 wk female Laurence Bryant , 8lbs 4oz, Primary at [facility] for CPD under spinal anesthesia Family History Family History Grandparent Diabetes mellitus Grandparent Hypertension Social History Social History Smoking status: Never smoker Alcohol intake: never Substance use: never Substance use type: does not use Gender identity (if verbalized by the patient): Female Sexual Orientation (if Verbalized by the Patient): Straight or Heterosexual Spiritual care concerns: No Agree to blood products: Yes Exam Narrative: APPEARANCE: Well appearing, no pain, no distress, well-nourished. HEAD: normocephalic, atraumatic. EYES: PERRLA/EOMI, conjunctivae clear. NOSE: Normal no drainage EARS:TMS clear with good light reflex. THROAT: Pharynx clear, no exudate. NECK: Supple. No adenopathy, no masses. RESPIRATORY: Airway patent, respirations nonlabored. Clear to auscultation bilaterally, no rales, rhonchi, wheezing. CARDIOVASCULAR: Regular rate and rhythm without murmurs rubs or g
[2022-01-28] MEDS: SODIUM CHLORIDE 0.9% IV 1,000 ML 999 ML IV CONT (00:47)
[2022-01-28] MEDS: KETOROLAC 15 MG/ML VIAL (*BKC) IV PUSH (00:48)
[2022-01-28] MEDS: diphenhydrAMINE HCl INJ 50 MG/ML VIAL 25 MG IV PUSH (00:49)
[2022-01-28] MEDS: PROCHLORPERAZINE EDISYLATE 10 MG/2 ML VIAL IV PUSH (00:50)
[2022-01-28 00:53] VITALS: O2SAT 100
[2022-01-28 00:53] LABS: Influenza A QL RT-PCR Negative (Negative); Influenza B QL RT-PCR Negative (Negative); SARS-CoV-2 RNA PCR Negative
[2022-01-28 01:04] VITALS: O2SAT 100
[2022-01-28 01:16] VITALS: BP 120/75
[2022-01-28 01:31] VITALS: BP 120/46
[2022-01-28 02:01] VITALS: BP 116/58
== END 2022-01-28 02:08 | disposition home or self-care (01) ==
PROVIDERS: Emergency Provider Emergency Medicine; PCP Physician Assistant
DX: R51.9 Headache, unspecified (principal); Z20.822 Contact with and (suspected) exposure to COVID-19
CPT/HCPCS: 81025; 87636; 96361; 96374; 96375; 99284; J0780; J1200; J1885; J7030

== ENCOUNTER 2023-02-20 14:51 | Emergency (ER) | payer OTHER, SELFPAY ==
--- NOTE | ~2023-02-20 | XR_ITS ---
XR chest 2V 02/20/2023 17:21 Indication: Cough and shortness of breath Procedure: 2 view chest Comparison: No prior studies for comparison. Findings: Right lower lobe pneumonia. Heart size normal. No pleural effusion, edema or pneumothorax. Impression: 1: Right lower lobe pneumonia. Reviewed, dictated and finalized at location A. [employer] Impression: 1: Right lower lobe pneumonia.
[2023-02-20 14:58] VITALS: BP 122/91; PULSE 118; RESP 17; TEMP 36.8; O2SAT 98
[2023-02-20 15:05] VITALS: PULSE 110; O2SAT 98
--- NOTE | 2023-02-20 15:05 | ED.SOB ---
HPI - SOB/Dyspnea General Chief Complaint: Shortness of Breath/Dyspnea Stated Complaint: resp distress Time Seen by Provider: 02/20/23 14:59 Source: patient Mode of arrival: EMS Limitations: no limitations History of Present Illness HPI Narrative: This is a 27 yo who presents with shortness of breath. She was prescribed an inhaler 2-3 weeks ago as well as a steroid and another pill, she believes an antibiotic but is not certain. No history of asthma. She continues to have a cough as well as post-tussive emesis. No fevesr. No lower extremity edema or travel. No hemoptysis or history of DVT. EMS administered solumedrol 125, albuterol/ipratropium (DuoNeb). Related Data Home Medications Medication Instructions Recorded Confirmed aspirin 81 mg tablet,delayed 81 mg PO DAILY 05/28/20 06/18/20 release folic acid 1 mg tablet 1 mg PO DAILY 05/28/20 06/18/20 vitamin with calcium 1 tablet PO DAILY 05/28/20 06/18/20 no.72-iron 27 mg-folic acid 1 mg tablet ( Vitamins Plus Low Iron) escitalopram oxalate 10 mg tablet 10 mg PO DAILY 06/02/20 06/18/20 ferrous sulfate 325 mg (65 mg 325 mg PO DAILY 06/02/20 06/18/20 iron) tablet (Iron (ferrous sulfate)) Allergies Allergy/AdvReac Type Severity Reaction Status Date / Time [id number] Antimigraine Allergy Anaphylaxis Verified 02/20/23 15:06 Agents PMFSH Past Medical History Medical History Abnormal glucose tolerance test (GTT) Anemia affecting Bacterial vaginosis GBS (group B Streptococcus carrier), +RV culture, currently History of depression History of UTI Homozygous MTHFR mutation C677T LGA (large for gestational age) fetus MDD (major depressive disorder) Migraine headache Obesity Sinusitis Sleep disorder Subchorionic hematoma Term Vaginal delivery 08-15-2015, 40 wks Male, 7lbs 2oz, normal spontaneous vertex Vaginal delivery born in [place] natural childbirth complicated by preeclampsia and gestational diabetes and depression Surgical History Surgical History Delivery by section Previous section complicating 05-07-2017, 38.1 wk female Laurence Bryant , 8lbs 4oz, Primary at [facility] for CPD under spinal anesthesia Family History Family History Grandparent Diabetes mellitus Grandparent Hypertension Social History Social History Smoking status: Never smoker Alcohol intake: never Substance use: never Substance use type: does not use Living arrangements: with family Occupation/Education: unemployed Gender identity (if verbalized by the patient): Female Sexual Orientation (if Verbalized by the Patient): Straight or Heterosexual Spiritual care concerns: No Agree to blood products: Yes Exam Narrative: GENERAL: Well-appearing, well-nourished, HEAD: Normocephalic, atraumatic. EYES: Non icteric, non injected ENT: Nares clear, no rhinorrhea or epistaxis. NECK: Supple. CHEST: Coarse breath sounds. Slightly tachypneic. End expiratory cough. Speaking in full sentences. Not having retractions. HEART: Tachycardic rate and rhythm. ABDOMEN: Obese but Soft EXTREMITIES: Normal range of motion. No LE edema. SKIN: Warm, dry, no rash. NEURO: No focal deficits. Alert and oriented x3. PSYCH: Normal mood and affect. Course Vital Signs Vital signs: Vital Signs Temperature 98.2 F 02/20/23 14:58 Pulse Rate 118 H 02/20/23 14:58 Respiratory Rate 17 02/20/23 14:58 Blood Pressure 122/91 H 02/20/23 14:58 Pulse Oximetry 98 02/20/23 14:58 Oxygen Delivery Room Air 02/20/23 14:58 Temperature 98.2 F 02/20/23 14:58 Pulse Rate 92 02/20/23 19:27 Respiratory Rate 20 02/20/23 19:27
--- NOTE | 2023-02-20 15:11 | ECG_ITS ---
Measurements Intervals [place] Rate: 95 P: 25 [place]: 144 QRS: -8 QRSD: 106 T: 10 QT: 368 QTc: 463 Interpretive Statements SINUS RHYTHM POOR R-WAVE PROGRESSION BORDERLINE eCG NO PREVIOUS ECG AVAILABLE FOR COMPARISON Electronically Signed On 02-21-2023 13:05:02 [employer] OPERATOR by Mark Anthony Aguirre M.D.
[2023-02-20] MEDS: SODIUM CHLORIDE 0.9% IV 1,000 ML 999 ML IV CONT (15:15)
[2023-02-20] MEDS: IPRATROPIUM BR 0.02% INH SOLN 0.5 MG/2.5 ML VIAL INHALATION ×3 (15:24→15:25)
[2023-02-20] MEDS: ALBUTEROL SULFATE NEB 2.5 MG/3 ML INH INHALATION ×3 (15:24→15:25)
[2023-02-20 15:28] VITALS: PULSE 96; RESP 18
[2023-02-20 15:44] LABS: Basophils Percent Auto 0.3 % (0.2-1.2); Eosinophils Absolute Auto 0.2 K/mm3 (0-0.3); Hematocrit 33.3 % (37.0-47.0); Hemoglobin 9.7 g/dL (12.0-15.0); Immature Granulocyte Absolute 0.05 K/mm3 (0.00-0.031); Immature Granulocyte Percent A 0.5 % (0-0.5); Lymphocytes Absolute Auto 1.48 K/mm3 (0.9-3.2); Lymphocytes Percent Auto 14.7 % (18.3-44.2); Mean Corpuscular HGB Conc 29.1 g/dl (32-36); Mean Corpuscular Hemoglobin 20.3 pg (26-34); Mean Corpuscular Volume 69.8 fl (80-100); Mean Platelet Volume 9.9 fl (7.4-10.4); Monocytes Absolute Auto 0.3 K/mm3 (0.1-0.6); Neutrophils Percent Auto 79.5 % (45.5-73.1); Platelet Count Result 381 k/mm3 (150-375); Red Blood Count 4.77 M/mm3 (4.2-5.4); Red Cell Distribution Width 17.6 % (11.5-14.5); White Blood Count 10.1 K/mm3 (4.5-10.0)
[2023-02-20 15:54] LABS: Hypochromasia 1+ (NORMAL); Microcytosis 1+ (NORMAL); Schistocytes None Seen (NORMAL)
[2023-02-20 15:59] LABS: Alanine Aminotransferase 22 U/L (6-35); Alkaline Phosphatase 95 U/L (38-126); Anion Gap 11 mmol/L (8-16); Aspartate Amino Transferase 22 U/L (14-36); Bilirubin,Total 0.5 mg/dL (0.2-1.3); Blood Urea Nitrogen 9 mg/dL (7-17); Calcium 8.7 mg/dL (8.4-10.2); Carbon Dioxide 22 mmol/L (22-30); Chloride 105 mmol/L (98-107); Estimated CRCL calculation 234 ml/min; Estimated Glomerular Filt Rate > 60; Glucose 123 mg/dL (65-110); Potassium 3.8 mmol/L (3.4-5.0); Sodium 138 mmol/L (137-145)
[2023-02-20 16:25] LABS: D Dimer 0.65 ug/mL (<0.48)
[2023-02-20 16:31] LABS: Influenza A QL RT-PCR Negative (Negative); Influenza B QL RT-PCR Negative (Negative); SARS-CoV-2 RNA PCR Negative (Negative)
[2023-02-20 16:43] VITALS: PULSE 108; RESP 20
[2023-02-20] MEDS: levoFLOXacin 500 MG/D5W 100 ML 500 MG/100 ML BAG 100 MG IVPB (17:54)
[2023-02-20 17:57] VITALS: BP 112/71; PULSE 92; RESP 20; O2SAT 97
[2023-02-20] MEDS: DOXYCYCLINE 100 MG/NS 100 ML 100 MG/100 ML BAG IVPB (18:12)
[2023-02-20 19:27] VITALS: BP 121/52; PULSE 92; RESP 20; O2SAT 99
== END 2023-02-20 19:29 | disposition home or self-care (01) ==
PROVIDERS: Emergency Provider Student in an Organized Health Care Education/Training Program; PCP Physician Assistant
DX: J18.9 Pneumonia, unspecified organism (principal); Z20.822 Contact with and (suspected) exposure to COVID-19; E66.9 Obesity, unspecified; Z68.43 Body mass index [BMI] 50.0-59.9, adult; G47.9 Sleep disorder, unspecified; F32.9 Major depressive disorder, single episode, unspecified; Z87.440 Personal history of urinary (tract) infections; Z79.82 Long term (current) use of aspirin; R94.31 Abnormal electrocardiogram [ECG] [EKG]
CPT/HCPCS: 36415; 71046; 80053; 81025; 83735; 85025; 85380; 87636; 93005; 94640; 96361; 96365; 96367; 99284; J1956; J7030